=== PATIENT | male | born 1990 | race African-American/Black ===

== ENCOUNTER 2020-03-23 19:24 | Emergency (ER) | payer OTHER, SELFPAY ==
[2020-03-23 19:30] VITALS: BP 114/62; PULSE 70; RESP 16; TEMP 36.6; O2SAT 98
--- NOTE | 2020-03-23 19:33 | ED.DENTAL ---
HPI - Dental/Oral General Chief complaint: Dental/Oral Stated complaint: tooth ache Time Seen by Provider: 03/23/20 19:33 Source: patient and RN notes reviewed History of Present Illness HPI Narrative: Patient is a 29-year-old male who presents the urgent care with complaints of right lower dental pain. Patient states that started 4 days ago and he has been taking his hydrocodone, which is prescribed for MS and headaches. Patient states that it has improved some but has had to use the hydrocodone more than the 3 times per day. Patient denies of any fever, chills, nausea, vomiting. Denies any swelling. States that he does have a dental appointment on April 03. Patient admits to smoking pot just a few hours ago and appears to be under the influence of illicit drugs. No other acute complaints. Patient read the plan of care. Related Data Home Medications Medication Instructions Recorded Confirmed citalopram [Celexa] 20 mg PO DAILY 03/23/20 03/23/20 hydrocodone-acetaminophen 1 tablet PO Q6H PRN 03/23/20 03/23/20 lamotrigine 75 mg PO DAILY 03/23/20 03/23/20 Allergies Allergy/AdvReac Type Severity Reaction Status Date / Time No Known Allergies Allergy Verified 03/23/20 19:39 Review of Systems Review of Systems: Narrative: CONSTITUTIONAL: Denies fever, chills, or sweats. EYES: Denies visual changes, redness, or discharge. ENT: Reports of lower right dental pain CARDIOVASCULAR: Denies chest pain, palpitations, or edema. RESPIRATORY: Denies cough or dyspnea. GASTROINTESTINAL: Denies abdominal pain, nausea, vomiting, or diarrhea. GENITOURINARY: Denies dysuria or hematuria. SKIN: Denies rash or itching. MUSCULOSKELETAL: Denies back pain, joint pain, or myalgia. NEUROLOGIC: Denies headache, numbness, or weakness. All other systems reviewed are negative, except as documented in HPI. PMFSH Comments At the time of my signature, I reviewed and agree with the nursing past medical, surgical, social, and family history. There is no relevant family history pertinent to the patient complaint. Exam Narrative: Exam Narrative: GENERAL: This is a well-nourished, well-developed patient, in no apparent distress. HEAD: normocephalic, atraumatic. EYES: PERRL. Sclera clear/white. Vision is grossly intact. EARS: External ears normal NOSE: External nose normal with no obvious nasal discharge, nares without redness, no rhinorrhea. THROAT: Mucous membranes moist, posterior pharynx clear. DENTAL: Tooth #30, lower right first molar, avulsed at the gumline with mild surrounding erythema NECK: Neck supple SKIN: warm, intact with no suspicious lesions or rash, good texture and turgor. NEURO: awake, alert, and oriented to person, place and time. There were no obvious focal neurologic abnormalities. EXTREMITIES: No clubbing, cyanosis, or edema. Course Vital Signs Vital signs: Vital Signs Temperature 97.9 F 03/23/20 19:30 Pulse Rate 70 03/23/20 19:30 Respiratory Rate 16 03/23/20 19:30 Blood Pressure 114/62 03/23/20 19:30 Pulse Oximetry 98 03/23/20 19:30 Temperature 97.9 F 03/23/20 19:30 Pulse Rate 70 03/23/20 19:30 Respiratory Rate 16 03/23/20 19:30 Blood Pressure 114/62 03/23/20 19:30 Pulse Oximetry 98 03/23/20 19:30 Reviewed MDM - Dental/Oral MDM Narrative Medical decision making narrative: Advised the patient to complete oral antibiotic regimen as prescribed. Make sure to eat and drink with the medication. Continue to use prescription hydrocodone as needed for pain. May use ice to the outside of the mouth for comfort. If you develop any increase in pain associated with fever, nausea, vomiting, swelling?go to the emergency room. Follow-up with your dentist as scheduled on April 03. Differential Diagnosis Differential diagnosis: Likely gingival abscess, dental caries, toothache, dental abscess and fracture of tooth Critical Care Time Critical Care Time Critical Care Time: No Discharge Plan Discharge C
== END 2020-03-23 19:47 | disposition home or self-care (01) ==
PROVIDERS: Emergency Provider Nurse Practitioner Family
DX: K04.7 Periapical abscess without sinus (principal); G35 Multiple sclerosis; I10 Essential (primary) hypertension; F41.9 Anxiety disorder, unspecified; F32.9 Major depressive disorder, single episode, unspecified
CPT/HCPCS: 99213; G0463